=== PATIENT | male | born 1995 | race Caucasian/White ===

== ENCOUNTER 2018-04-30 10:52 | Emergency (ER) | payer OTHER ==
[2018-04-30 11:04] VITALS: BMI 23.6
--- NOTE | 2018-04-30 11:52 | ED PDOC ---
HPI: Fever Additional Comments: 22 y/o male with no significant PMHx presents to ED complaining of frontal headaches, and fevers since last night. Patient states fever was 102 F last night, he took 2 motrin tablets, and his fever and headaches resolved for few hours. Also reports nasal congestion, left ear pain, sore throat, and one time non bloody diarrhea since last night. Denies nausea, vomiting, chills, chest pain, cough, SOB, abdominal pain, blurry vision, neck pain or stiffness. PMD: Dr. Fitzpatrick in [place] Past Medical History Vital Signs: Last Vital Signs Temp 102.9 F H 04/30/18 11:21 Pulse 129 H 04/30/18 11:21 Resp 20 04/30/18 11:21 BP 114/59 L 04/30/18 11:21 Pulse Ox 97 04/30/18 13:20 - Medical History PMH: No Chronic Diseases - Family History Family History: States: Unknown Family Hx - Immunization History Hx Tetanus Toxoid Vaccination: Yes Hx Influenza Vaccination: Yes Hx Pneumococcal Vaccination: Yes - Home Medications Home Medications: Ambulatory Orders Medication Instructions Recorded Amoxicillin 875 mg PO BID #14 tablet 04/30/18 Loratadine/Pseudoephedrine 1 each PO DAILY PRN #10 tab.er.24h 04/30/18 [Claritin-D 24 Hour Tablet] - Allergies Allergies/Adverse Reactions: Allergies Allergy/AdvReac Type Severity Reaction Status Date / Time No Known Allergies Allergy Verified 04/30/18 11:18 Review of Systems ROS Statement: Except As Marked, All Systems Reviewed And Found Negative (as per HPI) Physical Exam - Reviewed Nursing Documentation Reviewed: Yes Vital Signs Reviewed: Yes - Physical Exam Appears: Positive for: Non-toxic, No Acute Distress Skin: Positive for: Normal Color, Warm, Dry. Negative for: Diaphoresis, Pallor , Rash, Jaundice, Mottled, Cyanosis Eye Exam: Positive for: Normal appearance. Negative for: Conjunctival injection ENT: Positive for: Pharynx Is (swelling, erythema, no evidence of exudates), TM Is/Are (not visualized due to wax), Nasal Congestion (left swollen turbinate), Pharyngeal Erythema, Tonsillar Swelling. Negative for: Sinus Pain/Drainage, Tonsillar Exudate Neck: Positive for: Normal, Painless ROM, Supple. Negative for: Limited ROM Cardiovascular/Chest: Positive for: Regular Rate, Rhythm, Tachycardia. Negative for: Chest Non Tender, Edema, Gallop, Murmur Respiratory: Positive for: Normal Breath Sounds. Negative for: Decreased Breath Sounds, Accessory Muscle Use, Crackles, Rales, Rhonchi, Stridor, Wheezing , Respiratory Distress Gastrointestinal/Abdominal: Positive for: Bowel Sounds (normal), Soft. Negative for: Tenderness, Distended, Guarding Back: Positive for: Normal Inspection. Negative for: L CVA Tenderness, R CVA Tenderness Lymphatic: Positive for: Adenopathy (left submandibular) Neurologic/Psych: Positive for: Alert, tankroom tender II-XII (intact), Oriented. Negative for: Motor/Sensory Deficits, Facial Droop - ECG O2 Sat by Pulse Oximetry: 97 Medical Decision Making Medical Decision Making: Fever -URI vs Pharyngitis -rapid strep -[place] test -Flu test -Ibuprofen 600 mg PO once -Tylenol 650 mg PO once case discussed with Dr. Mosley -re-evaluate Re-evaluation -patient feels better, headache resolved with pain medication -rapid strep negative -flu test negative -mono test negative -patient's symptoms are improved, and he is stable to be discharge home, with recommended f/u with PMD -pending strep culture results case discussed with Dr. Mosley Disposition - Clinical Impression Clinical Impression: URI (upper respiratory infection) - Patient ED Disposition Is Patient to be Admitted: No Discussed With : Brooke Mosley - Disposition Disposition: Routine/Home Disposition Time: 14:45 Condition: IMPROVED Additional Instructions: FOLLOW-UP WITH PMD WITHIN 2 DAYS FOR REEVALUATION. Prescriptions: Amoxicillin 875 mg PO BID #14 tablet Loratadine/Pseudoephedrine [Claritin-D 24 Hour Tablet] 1 each PO DAILY PRN #10 tab.er.24h PRN Reason: Allergy Symptoms Instructions: Bacterial Upper Respiratory Infection, Adult Forms: [facility] [employer] (Khmer)
[2018-04-30 15:31] VITALS: BP 131/67; PULSE 88; RESP 18; TEMP 98.7; O2SAT 98
== END 2018-04-30 15:30 | disposition home or self-care (01) ==
LOC: H.ER 10:52
DX: J06.9 Acute upper respiratory infection, unspecified (principal); R19.7 Diarrhea, unspecified